=== PATIENT | male | born 1990 | race Caucasian/White ===

== ENCOUNTER 2017-03-27 09:30 | Emergency (ER) | payer BC, OTHER ==
[2017-03-27 09:49] VITALS: BP 121/67
--- NOTE | 2017-03-27 10:39 | UC ---
Skin Complaint HPI - HPI Summary HPI Summary: 26 yo male with the onset of a rash after his 4th dose of clinda for a finger infection slightly itchy no respiratory complains or facial swelling - History of Current Complaint Chief Complaint: UCAllergicReaction Time Seen by Provider: 03/27/17 10:20 Stated Complaint: POSSIBLE MED REACTION Hx Obtained From: Patient Onset/Duration: Gradual Onset, Lasting Hours Timing: Constant Onset Severity: Mild Current Severity: Mild Pain Intensity: 0 Pain Scale Used: 0-10 Numeric Location: Other - trunk and upper extremitis Character: Pruritus, Pain Aggravating: Nothing Alleviating: Nothing Associated Signs & Symptoms: Positive: Rash Related History: Recent change in medication - Allergy/Home Medications Allergies/Adverse Reactions: Allergies Allergy/AdvReac Type Severity Reaction Status Date / Time Ampicillin Allergy Hives Verified 03/27/17 09:50 Cefaclor [From [facility]] Allergy Hives Verified 03/27/17 09:50 Home Medications: Home Medications Methylphenidate TAB* [Ritalin TAB*] 10 mg PO DAILY 03/27/17 [History Confirmed 03/27/17] PARoxetine HCL TAB* [Paxil TAB*] 20 mg PO DAILY 03/27/17 [History Confirmed 07/04] Review of Systems Constitutional: Negative Skin: Rash Eyes: Negative ENT: Negative Respiratory: Negative Cardiovascular: Negative Gastrointestinal: Negative Genitourinary: Negative Motor: Negative Neurovascular: Negative Musculoskeletal: Negative Neurological: Negative Psychological: Negative All Other Systems Reviewed And Are Negative: Yes PMH/Surg Hx/FS Hx/Imm Hx Previously Healthy: Yes - Surgical History Surgical History: None - Family History Known Family History: Positive: Hypertension - Social History Alcohol Use: Weekly Substance Use Type: None Smoking Status (MU): Never Smoked Tobacco Physical Exam Triage Information Reviewed: Yes Appearance: Well-Appearing, No Pain Distress, Well-Nourished Vital Signs: Initial Vital Signs Temp 98.7 F 03/27/17 09:45 Pulse 81 03/27/17 09:45 Resp 18 03/27/17 09:45 BP 121/67 03/27/17 09:45 Pulse Ox 99 03/27/17 09:45 Vital Signs Reviewed: Yes Eyes: Positive: Conjunctiva Clear ENT: Positive: Normal ENT inspection, Hearing grossly normal, Pharynx normal, TMs normal. Negative: Nasal congestion, Nasal drainage, Tonsillar swelling, Tonsillar exudate, Trismus, Muffled/hoarse voice Neck: Positive: Supple, Nontender Respiratory: Positive: Lungs clear, Normal breath sounds, No respiratory distress, No accessory muscle use Cardiovascular: Positive: RRR, No Murmur Musculoskeletal: Positive: ROM Intact, No Edema Neurological: Positive: Alert, Muscle Tone Normal Psychological Exam: Normal Skin Exam: Other Skin: Positive: rashes - fine red macular rash noted on on arms/trunk no angioedema Course/Dx - Diagnoses Provider Diagnoses: drug eruption. allergy to clindamycin Discharge - Discharge Plan Condition: Stable Disposition: HOME Prescriptions: DOXYcycline CAP(*) [DOXYcycline 100MG CAP(*)] 100 mg PO BID #14 cap Patient Education Materials: Acute Rash (ED) Referrals: Jayson Senior MD [Primary Care Provider] - If Needed Additional Instructions: I suspect this is a drug rash related to a clindamycin allergy stop clinda start doxy consider seeing clerical and administrative workers to determine if you have a true allergy to penicillins benadryl if needed for itching I will be here until 2:30 if you have any questions or develop new symptoms please call me
== END 2017-03-27 10:39 | disposition home or self-care (01) ==
LOC: UCEAST 09:30
DX: L27.0 Generalized skin eruption due to drugs and medicaments taken internally (principal); T36.8X5A Adverse effect of other systemic antibiotics, initial encounter; Y92.9 Unspecified place or not applicable; Z88.1 Allergy status to other antibiotic agents
CPT/HCPCS: 99212; G0463